=== PATIENT | male | born 1965 | race Caucasian/White ===

== ENCOUNTER 2017-11-29 02:28 | Emergency (ER) | payer BC, MEDICAID ==
[~2017-11-29] VITALS: Ht 165.1 cm; Wt 100.0 kg
[2017-11-29] MEDS ORDERED: SODIUM CHLORIDE 0.9% 1,000 ML IV ONE (03:18)
[2017-11-29] MEDS ORDERED: FAMOTIDINE 20MG/2ML VIAL IV STA (03:18)
[2017-11-29] MEDS ORDERED: ONDANSETRON HCL 4MG/2ML VIAL IV STA (03:18)
[2017-11-29] MEDS ORDERED: MORPHINE SULFATE 4 MG/ML CPJ (NOT FOR IM USE) IV STA (03:18)
[2017-11-29 03:53] LABS: BASOPHILS % 0.4 % (0.0-2.0); EOSINOPHILS % 0.6 % (0.0-5.0); HEMATOCRIT. 42.3 % (42.0-52.0); HEMOGLOBIN. 14.5 g/dL (14.0-18.0); LYMPHOCYTES % 17.3 % (20.0-50.0); MEAN CORPUSCULAR HEMOGLOBIN 30.2 pg (28.0-32.0); MEAN PLATELET VOLUME 9.9 fl (7.4-10.4); MONOCYTES % 5.2 % (2.0-8.0); NEUTROPHILS % 76.5 % (40.0-76.0); PLATELET 228 x1000/uL (130-400); RED BLOOD CELL COUNT 4.81 mill/uL (4.7-6.1)
[2017-11-29 03:55] LABS: CHLORIDE 101 mEq/L (98-107)
[2017-11-29 03:59] LABS: PROTHROMBIN TIME 10.3 sec (9.4-11.6)
[2017-11-29] MEDS ORDERED: SODIUM CHLORIDE 0.9% 1000ML BAG (SEPSIS BOLUS) IV ONE (04:30)
[2017-11-29 05:18] LABS: CLARITY URINE CLEAR (CLEAR); COLOR URINE YELLOW (YELLOW); KETONES URINE 1+ (NEGATIVE); LEUKOCYTE ESTERASE URINE NEGATIVE (NEGATIVE); NITRITE URINE NEGATIVE (NEGATIVE); OCCULT BLOOD URINE NEGATIVE (NEGATIVE); PH URINE >=9.0 (4.5-8.0); PROTEIN URINE 1+ (NEGATIVE); SPECIFIC GRAVITY URINE 1.022 (1.005-1.030); UROBILINOGEN URINE 0.2 E.U./dL (0.2-1.0)
[2017-11-29] MEDS ORDERED: SODIUM CHLORIDE 0.9% 2,000 ML IV SCH (06:45)
[2017-11-29] MEDS ORDERED: IOHEXOL-300 100 ML BOTTLE ONE (07:29)
[2017-11-29 08:51] VITALS: BP 128/65
== END 2017-11-29 08:57 | disposition home or self-care (01) ==
LOC: ER 02:28
DX: E86.0 Dehydration (principal); K52.9 Noninfective gastroenteritis and colitis, unspecified; E87.2 Acidosis; I25.10 Atherosclerotic heart disease of native coronary artery without angina pectoris; I10 Essential (primary) hypertension; E78.00 Pure hypercholesterolemia, unspecified; Z95.1 Presence of aortocoronary bypass graft; Z95.0 Presence of cardiac pacemaker
CPT/HCPCS: 36415; 74177; 80053; 81003; 83605; 83690; 85025; 85610; 87040; 87086; 96361; 96374; 96375; 99285; J2270; J2405; J3490; J7030; Q9967

== ENCOUNTER 2020-05-10 04:49 | Emergency (ER) | payer BC, MEDICAID ==
[~2020-05-10] VITALS: Ht 167.6 cm; Wt 91.0 kg
[2020-05-10 06:33] LABS: BASOPHILS % 0.6 % (0.0-2.0); EOSINOPHILS % 0.8 % (0.0-5.0); HEMATOCRIT. 41.4 % (42.0-52.0); HEMOGLOBIN. 13.9 g/dL (14.0-18.0); LYMPHOCYTES % 25.4 % (20.0-50.0); MEAN CORPUSCULAR HEMOGLOBIN 30.4 pg (28.0-32.0); MEAN CORPUSCULAR VOLUME 90.6 fL (80.0-94.0); MEAN PLATELET VOLUME 9.9 fl (7.4-10.4); MONOCYTES % 6.4 % (2.0-8.0); NEUTROPHILS % 66.8 % (40.0-76.0); PLATELET 214 x1000/uL (130-400); RED BLOOD CELL COUNT 4.57 mill/uL (4.7-6.1); RED CELL DISTRIBUTION WIDTH 13.1 % (11.6-14.6)
[2020-05-10 06:38] LABS: CHLORIDE 104 mEq/L (98-107)
[2020-05-10 17:05] VITALS: BP 130/78
== END 2020-05-10 17:23 | disposition short-term general hospital (02) ==
LOC: ER 04:49
DX: R06.00 Dyspnea, unspecified (principal); E11.9 Type 2 diabetes mellitus without complications; E78.00 Pure hypercholesterolemia, unspecified; I10 Essential (primary) hypertension; I25.10 Atherosclerotic heart disease of native coronary artery without angina pectoris; Z95.1 Presence of aortocoronary bypass graft; Z95.810 Presence of automatic (implantable) cardiac defibrillator
CPT/HCPCS: 36415; 71045; 80053; 83880; 84484; 85025; 93005; 99285